=== PATIENT | male | born 2000 | race African-American/Black ===

== ENCOUNTER 2021-11-02 19:19 | Emergency (ER) | payer OTHER, SELFPAY ==
[2021-11-02] MEDS ORDERED: Ibuprofen 200 MG TAB ONE (20:30)
[2021-11-02 20:35] LABS: Bacteria/HPF 3+ HPF (None Seen); Bilirubin Negative (Negative); Blood, Urine 3+ (Negative); Clarity Turbid (Clear); Glucose, Urine (Dipstick) Normal (Negative); Ketone, Urine 40 mg/dL (Negative); Leukocyte 500 Leu/uL (Negative); Nitrite Negative (Negative); Protein, Urine (Dipstick) 100 mg/dL (Neg-Trace); RBC/HPF Greater than 50 HPF (0-3); Renal Epithelial 0-3 HPF (None Seen); Squamous Epithelial None Seen HPF (0-3); WBC/HPF Greater than 50 HPF (0-3)
[2021-11-02 20:42] LABS: Mucous/LPF 2+ LPF (<2+)
[2021-11-02] MEDS ORDERED: cefTRIAXone\\ROCEPHIN 500 MG VIAL ONE (21:28)
[2021-11-02] MEDS ORDERED: Lidocaine 1% PF 5 ML VIAL ONE (21:28)
[2021-11-03 15:58] LABS: Chlam.trachomatis by PCR,Urine DETECTED (NotDetected)
== END 2021-11-02 21:51 | disposition home or self-care (01) ==
LOC: ERS 19:19
DX: A56.01 Chlamydial cystitis and urethritis (principal); N39.0 Urinary tract infection, site not specified; R31.9 Hematuria, unspecified
CPT/HCPCS: 81003; 81015; 87077; 87086; 87186; 87491; 87591; 96372; 99283; J0696